=== PATIENT | male | born 1995 | race Caucasian/White ===

== ENCOUNTER 2017-04-03 16:47 | Emergency (ER) | payer BC, OTHER ==
--- NOTE | 2017-04-03 18:15 | ED ---
Head Injury HPI - General Chief complaint: Head Injury Stated complaint: head laceration Time Seen by Provider: 04/03/17 17:55 Source: patient Mode of arrival: ambulatory Limitations: no limitations - History of Present Illness Initial comments: Patient is a 22-year-old male presenting to the emergency department with complaints of head injury and head laceration. Patient states he was hammering a board when he took his eyes off the hammer and accidentally hit his head causing to contusions to his left temporal area and a laceration to the top of his head.. Patient states the injury happened at 3:30 PM this afternoon. Patient states that he "blacked out" for a few seconds followed by nausea and feeling out of it while his girlfriend drove him to the emergency department. Patient is currently complaining of pain to his left temporal area. Patient rates pain 8 out of 10, described as sharp. Patient denies previous trauma to this area. No history of recent illness, fevers, vomiting, shortness of breath, chest pain, or abdominal pain. Patient denies neck pain. Patient denies muscular weakness. Patient denies numbness or tingling. No treatment prior to arrival. Patient states he is not up-to-date on tetanus immunization. - Related Data Previous Rx's Medication Instructions Recorded Acetaminophen-Codeine 300-30mg 1 each PO Q6H PRN #21 tablet 05/26/14 [Tylenol #3] Allergies/Adverse reactions: Allergies Allergy/AdvReac Type Severity Reaction Status Date / Time ibuprofen [From Motrin] Allergy Unknown Verified 05/26/14 14:59 Review of Systems ROS Statement: Those systems with pertinent positive or pertinent negative responses have been documented in the HPI. ROS Other: All systems not noted in ROS Statement are negative. Past Medical History Past Medical History: No Reported History History of Any Multi-Drug Resistant Organisms: None Reported Past Surgical History: No Surgical Hx Reported Past Psychological History: No Psychological Hx Reported Smoking Status: Current every day smoker Past Alcohol Use History: Occasional Past Drug Use History: None Reported General Exam Limitations: no limitations General appearance: alert, in no apparent distress Expanded Head exam: Present: abrasion (Abrasion to scalp), contusion (2 contusions noted to temporal area on left side.). Absent: raccoon eyes, ramos's sign, tenderness of temporal artery, CSF rhinorrhea, CSF otorrhea Eye exam: Present: normal appearance, PERRL, EOMI. Absent: scleral icterus, conjunctival injection, nystagmus, periorbital swelling, periorbital tenderness ENT exam: Present: normal exam, normal oropharynx, mucous membranes moist, TM's normal bilaterally, normal external ear exam Neck exam: Present: normal inspection, full ROM. Absent: tenderness, meningismus, lymphadenopathy Respiratory exam: Present: normal lung sounds bilaterally. Absent: respiratory distress, wheezes, rales, rhonchi Cardiovascular Exam: Present: regular rate, normal rhythm, normal heart sounds. Absent: systolic murmur, diastolic murmur, rubs, gallop, clicks GI/Abdominal exam: Present: soft, normal bowel sounds. Absent: tenderness Extremities exam: Present: normal inspection, full ROM. Absent: tenderness, normal capillary refill, pedal edema Back exam: Present: normal inspection, full ROM. Absent: tenderness, paraspinal tenderness, vertebral tenderness Neurological exam: Present: alert, oriented X3, CN II-XII intact, normal gait. Absent: motor sensory deficit Psychiatric exam: Present: normal affect, normal mood Skin exam: Present: warm, dry, normal color Course Vital Signs 04/03/17 16:56 Temperature 98.6 F Pulse Rate 95 Respiratory 18 Rate Blood Pressure 114/71 O2 Sat by Pulse 100 Oximetry Medical Decision Making - Medical Decision Making Contusion to scalp. Abrasion of scalp. Concussion. CT brain negative. Patient instructed to follow-up with primary care physician before returning to sports. Patient educated on return parameters. Discharge instructions reviewed. - Radiology Data Radiology results: report reviewed CT brain without contrast: No acute intracranial hemorrhage, mass effect, midline shift identified. The ventricles and foci are within normal limits in size. Skeletal structures are negative. The subcutaneous soft tissues are grossly negative. The temporalis is hypertrophic bilaterally, this is a nonspecific finding but can correlate with the clinical diagnosis of bruxism. Disposition Clinical Impression: Contusion of scalp, Head injury with loss of consciousness, Abrasion, scalp w/ o infection, Concussion Disposition: HOME SELF-CARE Condition: Good Instructions: Concussion (ED), Head Injury (ED), Abrasion (ED) Additional Instructions: Follow-up with primary care physician to determine whether return to sports will be safe. Please return to the emergency department with worsening headache , visual changes, confusion, any weakness, numbness, or tingling, or other changes in status. Referrals: None,Stated [Primary Care Provider] - 1-2 days Time of Disposition: 19:14
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
[2017-04-03] MEDS ORDERED: ACETAMINOPHEN TAB 325 MG TAB PO STA (19:09)
[2017-04-03 19:26] VITALS: BP 121/74; PULSE 78; RESP 16; TEMP 98.3
== END 2017-04-03 19:26 | disposition home or self-care (01) ==
LOC: EC 16:47
DX: S06.0X1A Concussion with loss of consciousness of 30 minutes or less, initial encounter (principal); S00.03XA Contusion of scalp, initial encounter; F17.200 Nicotine dependence, unspecified, uncomplicated; Z88.6 Allergy status to analgesic agent; W22.8XXA Striking against or struck by other objects, initial encounter; Y93.89 Activity, other specified
CPT/HCPCS: 70450; 99283

== ENCOUNTER 2018-01-11 22:53 | Emergency (ER) | payer BC, OTHER ==
[2018-01-11 22:59] VITALS: RESP 18
--- NOTE | 2018-01-11 23:38 | ED ---
General Adult HPI - General Chief complaint: Back Pain/Injury Stated complaint: back pain Time Seen by Provider: 01/11/18 23:21 Source: patient, family, RN notes reviewed Mode of arrival: ambulatory Limitations: no limitations - History of Present Illness Initial comments: Chief complaint history of present illness is a 22-year-old male here with his significant other. The patient reports that 3 days ago while on the job he fell off a roof falling approximately 20 feet. 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 He states that over the past 3 days since this happened he developed some localized swelling and discomfort in the lumbar spine. He denies any head or neck injuries no shortness of breath no neuro deficits. - Related Data Previous Rx's Medication Instructions Recorded Acetaminophen-Codeine 300-30mg 1 each PO Q6H PRN #21 tablet 05/26/14 [Tylenol #3] traMADol HCl [Ultram] 50 mg PO Q6H PRN #12 tab 01/12/18 Allergies Allergy/AdvReac Type Severity Reaction Status Date / Time ibuprofen [From Motrin] Allergy Unknown Verified 01/11/18 22:59 Review of Systems ROS Statement: Those systems with pertinent positive or pertinent negative responses have been documented in the HPI. Review of systems all negative except for discomfort to his lumbar spine. Patient has a small abrasion bruise and small bulging area in the mid lumbar spine. Denies any pain radiating down the legs, denies any neuro deficits. Denies head or neck pain. All systems are reviewed. No significant past medical problems. Surgeries none. Family history no cancers. ALLERGIES ibuprofen per his mother. He has not taken Tylenol for the past 3 days was doesn't normally help. She does smoke he was encouraged to stop denies alcohol use. ROS Other: All systems not noted in ROS Statement are negative. Past Medical History Past Medical History: No Reported History History of Any Multi-Drug Resistant Organisms: None Reported Past Surgical History: No Surgical Hx Reported Past Psychological History: No Psychological Hx Reported Smoking Status: Current every day smoker Past Alcohol Use History: Occasional Past Drug Use History: None Reported General Exam - General Exam Comments Initial Comments: General: The patient is awake and alert, complains discomfort with a small bulge the lumbar spine. Fell off a roof 3 days ago. Vital signs temperature 97.5 pulse 73 respiratory rate 18 pulse ox on percent room air blood pressure 131/62 Neck: The neck is supple, denies head or neck pain. Cardiovascular: Denies chest pain no palpitations. Respiratory: No respiratory distress, no complaints of shortness of breath. Gastrointestinal: Denies abdominal pain denies any difficulty urinating or bowel movements. Back: Complains discomfort with a small bulge and abrasion on the lumbar spine area. Pain increased with palpation of the area and stretching. No radiation of pain down the legs. Denies any neuro deficits. Musculoskeletal: Full range of motion upper and lower extremities. Denies any pain to any extremity. Neurological: No evidence or complaints of any focal or lateralizing signs. Skin: Small abrasion lumbar spine Psychiatric: Cooperative, Limitations: no limitations Course Vital Signs 01/11/18 22:56 Temperature 97.5 F L Pulse Rate 73 Respiratory 18 Rate Blood Pressure 131/62 O2 Sat by Pulse 100 Oximetry Medical Decision Making - Medical Decision Making Medical decision making; this is a 22-year-old male who reports she fell approximately 20 feet after sliding off a roof while on the job 3 days ago. Complains discomfort to the lumbar spine small bruise and bulge noted. Denies any other aches or pains no pain to his head neck or extremities. X-ray of the lumbosacral spine was done and reviewed by radiologist his impression is a lumbar vertebrae have normal spacing alignment. Posterior elements are intact. There is no sign of compression fracture. Sacroiliac joints appear normal. Impression normal lumbar spine. As read by Dr. Dorado. While in emergency room the patient was given a tramadol. He reports she has ALLERGIES to ibuprofen. The patient will be given a prescription of a dozen tramadol to be taken one every 6-8 hours as needed for pain advised to call follow-up with his family physician if he does not have one he is to follow-up with Dr. Pepper. He' ll also be referred to orthopedics to the pain persists. X-ray in 7-10 days may be necessary if pain persists. Visine if he has any numbness tingling difficulty urinating have bowel movements return emergency room immediately. Disposition Clinical Impression: Acute lumbosacral myofascial strain, Lumbosacral injury Disposition: HOME SELF-CARE Condition: Stable Instructions: Acute Low Back Pain (ED), Lower Back Exercises (ED) Additional Instructions: Do gentle stretching, alternating with ice and heat as needed for discomfort. Take tramadol for pain. Do not use tramadol while on the job. Use Tylenol as needed follow-up with your family physician if you don't have family physician follow-up with orthopedics on-call. Prescriptions: traMADol HCl [Ultram] 50 mg PO Q6H PRN #12 tab PRN Reason: Pain Referrals: None,Stated [Primary Care Provider] - 1-2 days Jorden Urias, [Doctor of Osteopathic Medicine] - 1-2 days Time of Disposition: 00:16
[2018-01-12] MEDS ORDERED: traMADol 50 MG TAB PO STA
--- NOTE | 2018-01-12 00:06 | XR ---
EXAMINATION TYPE: XR lumbosacral spine min 4V DATE OF EXAM: 01/11/2018 COMPARISON: NONE HISTORY: Back pain TECHNIQUE: 5 views FINDINGS: Lumbar vertebra have normal spacing and alignment. Posterior elements are intact. There is no sign of compression fracture. Sacroiliac joints appear normal. IMPRESSION: Normal lumbar spine
[2018-01-12 00:29] VITALS: BP 138/69; PULSE 71; TEMP 97.8
== END 2018-01-12 00:28 | disposition home or self-care (01) ==
LOC: EC 22:53
DX: S39.012A Strain of muscle, fascia and tendon of lower back, initial encounter (principal); M51.26 Other intervertebral disc displacement, lumbar region; F17.200 Nicotine dependence, unspecified, uncomplicated; Z88.6 Allergy status to analgesic agent; W13.2XXA Fall from, out of or through roof, initial encounter; Y92.89 Other specified places as the place of occurrence of the external cause
CPT/HCPCS: 72110; 99283

== ENCOUNTER 2018-12-09 16:03 | Emergency (ER) | payer OTHER ==
[2018-12-09 16:10] VITALS: BP 129/73; PULSE 91; RESP 16; TEMP 98.3
[2018-12-09] MEDS ORDERED: KETOROLAC 60 MG/2 ML VIAL IM STA (16:47)
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
--- NOTE | 2018-12-09 19:22 | XR ---
EXAMINATION TYPE: XR ribs LT w pa chest xray DATE OF EXAM: 12/09/2018 COMPARISON: NONE HISTORY: Chest pain TECHNIQUE: 5 views FINDINGS: Heart and mediastinum are normal. Lungs are clear of infiltrate. There is no pleural effusi on or pneumothorax. Left ribs appear intact. IMPRESSION: Normal chest. Normal left ribs.
== END 2018-12-09 18:27 | disposition home or self-care (01) ==
LOC: EC 16:03
DX: R07.81 Pleurodynia (principal); F17.200 Nicotine dependence, unspecified, uncomplicated; Y04.0XXA Assault by unarmed brawl or fight, initial encounter
CPT/HCPCS: 71101; 99283; 96372; J1885

== ENCOUNTER 2021-05-30 17:16 | Emergency (ER) | payer OTHER ==
[2021-05-30] MEDS ORDERED: GELATIN SPONGE,ABSORB (SMALL) 1 EACH SPONGE TOPICAL STA (17:39)
[2021-05-30] MEDS ORDERED: LIDOCAINE 1% INJ 10MG/ML (20 ML MDV) SQ ONE (17:39)
[2021-05-30] MEDS ORDERED: HYDROcodone/APAP 5-325MG 1 EACH TAB PO STA (17:52)
--- NOTE | 2021-05-30 17:56 | ED ---
Recheck HPI - General Chief Complaint: Recheck/Abnormal Lab/Rx Stated Complaint: IHS-cut off thumb Time Seen by Provider: 05/30/21 17:52 Source: patient Mode of arrival: ambulatory Limitations: no limitations - History of Present Illness Initial Comments: Is a 26-year-old male who presents emergency department for bleeding from his left thumb amputation. The patient sustained the amputation this morning while using a circular saw at work. He was seen at [facility] and was evaluated. He had the wound dressed and was given antibiotics for home. He was also given a follow-up appointment with a hand specialist for tomorrow. He states that he was on his way home and the bleeding seemed to persist through his bandages so he came to the emergency department. Patient denies any other complaints at this time. - Related Data Home Medications Medication Instructions Recorded Confirmed Amoxic-Pot Clav 875-125Mg 1 tab PO Q12HR 05/30/21 05/30/21 [Augmentin 875-125] HYDROcodone/APAP 5-325MG [[place] 1 tab PO Q6H PRN 05/30/21 05/30/21 5-325] Allergies Allergy/AdvReac Type Severity Reaction Status Date / Time No Known Allergies Allergy Verified 05/30/21 18:38 Review of Systems ROS Statement: Those systems with pertinent positive or pertinent negative responses have been documented in the HPI. ROS Other: All systems not noted in ROS Statement are negative. Past Medical History Past Medical History: No Reported History History of Any Multi-Drug Resistant Organisms: None Reported Past Surgical History: No Surgical Hx Reported Past Psychological History: No Psychological Hx Reported Smoking Status: Current every day smoker Past Alcohol Use History: Occasional Past Drug Use History: None Reported General Exam - General Exam Comments Initial Comments: Constitutional: Awake alert Appears comfortable Head: Normocephalic atraumatic Eyes: no conjunctival injection No scleral icterus EOMI Neck: No JVD Supple Heart: Regular rate rhythm normal S1-S2 no murmurs Lungs: Clear to auscultation bilaterally No wheezing No rales Abdomen: Soft nondistended nontender Extremities: Non edematous DP pulses intact Radial pulses intact, the patient has a indication of the tip of the left thumb. The patient amputation is erythematous and subcutaneous tissue without any exposed bone that I can see. There is some venous bleeding from this area. The thumb otherwise appears well perfused. Does not appear to be arterial in nature. Neuro: A&Ox3 No focal neurologic deficits Psych: Appropriate mood and affect Limitations: no limitations Course Vital Signs 05/30/21 17:18 Temperature 97.8 F Pulse Rate 72 Respiratory 18 Rate Blood Pressure 123/72 O2 Sat by Pulse 100 Oximetry Medical Decision Making - Medical Decision Making This 26-year-old male who presents emergency department from [facility] because he developed bleeding of his MB to the left thumb on the way home. I evaluated the patient and was able to stop the bleeding with direct pressure and Gelfoam. The patient was monitored in the emergency department for a period of time and did not have any evidence of rebleeding. He was started given tetanus, antibiotics and had the wound extensively cleansed. He has follow-up with a hand surgeon tomorrow. I told him to keep the limb elevated thus he can and to monitor the hand for any rebleeding. The patient stated they understood and agreed. He has prescriptions for any biotics and pain medications as well. Disposition Clinical Impression: Amputation thumb Disposition: HOME SELF-CARE Condition: Stable Instructions (If sedation given, give patient instructions): Finger Amputation (ED) Is patient prescribed a controlled substance at d/c from ED?: No Referrals: None,Stated [Primary Care Provider] - 1-2 days
[2021-05-30 19:04] VITALS: BP 118/80; PULSE 76; RESP 20; TEMP 97
== END 2021-05-30 19:03 | disposition home or self-care (01) ==
LOC: EC 17:16
DX: S68.012A Complete traumatic metacarpophalangeal amputation of left thumb, initial encounter (principal); W27.0XXA Contact with workbench tool, initial encounter; F17.200 Nicotine dependence, unspecified, uncomplicated
CPT/HCPCS: 99283; J2001